=== PATIENT | female | born 1965 | race Caucasian/White ===

== ENCOUNTER 2017-08-18 09:59 | Outpatient (CLI) | payer OTHER | END 2017-08-18 18:15 | disposition home or self-care (01) | LOC: MRD 09:59 | PROVIDERS: ATTEND Internal Medicine Geriatric Medicine | DX: M20.12 Hallux valgus (acquired), left foot (principal); M19.072 Primary osteoarthritis, left ankle and foot | CPT/HCPCS: 73630 ==